=== PATIENT | female | born 1985 | race Caucasian/White ===

== ENCOUNTER 2024-03-03 14:48 | Emergency (ER) | payer SELFPAY ==
[~2024-03-03] VITALS: Ht 165.1 cm; Wt 75.0 kg
[2024-03-03 15:02] VITALS: TEMP 98.3; O2SAT 100
[2024-03-03] MEDS: METOCLOPRAMIDE HCL 10MG/2ML VIAL IV ONE (17:01)
[2024-03-03] MEDS: SODIUM CHLORIDE 0.9% 1,000 ML IV ONE (17:01)
[2024-03-03 17:48] LABS: BASOPHILS % 0.3 % (0.0-2.0); EOSINOPHILS % 0.3 % (0.0-5.0); HEMATOCRIT. 42.2 % (36.0-48.0); HEMOGLOBIN. 13.5 g/dL (12.0-16.0); LYMPHOCYTES % 10.8 % (20.0-50.0); MEAN CORPUSCULAR HEMOGLOBIN 27.3 pg (28.0-32.0); MEAN CORPUSCULAR HGB CONC 32.1 g/dL (31.0-37.0); MEAN CORPUSCULAR VOLUME 85.1 fL (81.0-99.0); MEAN PLATELET VOLUME 8.1 fl (7.4-10.4); MONOCYTES % 2.6 % (2.0-8.0); PLATELET 322 x1000/uL (130-400); RED BLOOD CELL COUNT 4.96 mill/uL (4.2-5.4); RED CELL DISTRIBUTION WIDTH 14.6 % (11.6-14.6); WHITE BLOOD COUNT 8.9 x1000/uL (4.5-11.0)
[2024-03-03 17:59] LABS: CHLORIDE 107 mEq/L (98-107); SODIUM 138 mEq/L (136-145)
[2024-03-03 18:00] LABS: CALCIUM 9.5 mg/dL (8.7-10.4); CARBON DIOXIDE 24 mEq/L (21-32)
[2024-03-03 18:05] LABS: CREATININE 0.6 mg/dL (0.6-1.0); GLUCOSE 98 mg/dL (70-105); UREA NITROGEN BLOOD 11 mg/dL (9-23)
[2024-03-03 18:08] LABS: HCG SCREEN NEGATIVE
[2024-03-03 18:09] LABS: TROPONIN I HIGH SENSITIVITY < 4 ng/L (3.0-34)
[2024-03-03] MEDS ORDERED: MECL-299 MT (18:30)
[2024-03-03 18:39] VITALS: BP 101/58; PULSE 88; RESP 14; O2SAT 97
== END 2024-03-03 18:52 | disposition home or self-care (01) ==
LOC: ER 14:48
DX: R42 Dizziness and giddiness (principal); R11.2 Nausea with vomiting, unspecified
CPT/HCPCS: 99283; 96374; 96361; 80048; 84703; 85025; 84484; 36415; J2765; J7030